=== PATIENT | female | born 1975 | race Two or more races ===

== ENCOUNTER 2017-06-20 22:13 | Emergency (ER) | payer OTHER ==
--- NOTE | 2017-06-20 23:10 | EKG REPORT ---
SEVERITY:- BORDERLINE ECG - SINUS TACHYCARDIA PROBABLE LEFT ATRIAL ABNORMALITY : Confirmed by: Abilio Rae 20-Jun-2017 23:10:01
[2017-06-20] MEDS ORDERED: MAG HYDROX/AL HYDROX/SIMETH SUSP 30 ML UDCUP PO ONE (23:22)
[2017-06-20] MEDS ORDERED: METOCLOPRAMIDE HCL ORAL SOLN 10 MG/10 ML UDCUP PO ONE (23:22)
[2017-06-20] MEDS ORDERED: LIDOCAINE 2% VISCOUS SOLN 20 ML UDCUP PO ONE (23:22)
[2017-06-20 23:50] LABS: ALBUMIN 3.4 g/dL (3.5-5.0); ANION GAP 13 (5-19); BILIRUBIN,DIRECT 0.4 mg/dL (0.0-0.4); BILIRUBIN,TOTAL 0.8 mg/dL (0.2-1.3); BLOOD UREA NITROGEN 10 mg/dL (7-20); CARBON DIOXIDE 21 mmol/L (22-30); CHLORIDE 98 mmol/L (98-107); GLUCOSE 322 mg/dL (75-110)
[2017-06-20 23:53] LABS: MEAN CORPUSCULAR VOLUME 87 fl (80-97); RED BLOOD COUNT 4.38 10^6/uL (3.72-5.28); RED CELL DISTRIBUTION WIDTH 12.6 % (11.5-14.0); WHITE BLOOD COUNT 11.4 10^3/uL (4.0-10.5)
[2017-06-20 23:57] LABS: ALANINE AMINOTRANSFERASE 33 U/L (9-52); CALCIUM 8.8 mg/dL (8.4-10.2)
[2017-06-20 23:58] LABS: ALKALINE PHOSPHATASE 127 U/L (38-126); ASPARTATE AMINO TRANSFERASE 14 U/L (14-36); POTASSIUM 4.1 mmol/L (3.6-5.0)
[2017-06-21 00:25] LABS: HEMOGLOBIN 12.8 g/dL (12.0-15.5); HGB HCT DIFFERENCE 0.4
[2017-06-21 00:26] LABS: MEAN CORPUSCULAR HEMOGLOBIN 29.1 pg (27.0-33.4); MEAN CORPUSCULAR HGB CONC 33.6 g/dL (32.0-36.0)
[2017-06-21 00:32] LABS: ABSOLUTE EOSINOPHILS# (MANUAL) 0.1 10^3/uL (0.0-0.6); BAND NEUTROPHILS % (MANUAL) 1 % (3-5); BASOPHILS % (MANUAL) 0 % (0-2); EOSINOPHILS % (MANUAL) 1 % (0-6); LYMPHOCYTES % (MANUAL) 15 % (13-45); TOTAL CELLS COUNTED 100
[2017-06-21 00:33] LABS: RBC MORPHOLOGY COMMENT NORMO-CYTIC/CHROMIC; TOXIC GRANULATION 1+; TOXIC VACUOLATION PRESENT
--- NOTE | 2017-06-21 01:10 | RADIOLOGY REPORT (SQ) ---
EXAM DESCRIPTION: CHEST PA/LAT CLINICAL HISTORY: Chest pain COMPARISON: None. FINDINGS: Frontal and lateral views of the chest. The cardiomediastinal silhouette has normal size and contour. No consolidation, pneumothorax, or pleural effusion. Leads overlie the chest. No displaced rib fractures identified. Prior cholecystectomy. IMPRESSION: 1. No acute pulmonary process identified.
[2017-06-21] MEDS ORDERED: NORMAL SALINE 1000 ML 1,000 ML IV ONE (01:22)
[2017-06-21 01:47] LABS: APPEARANCE,URINE CLEAR; BILIRUBIN,URINE NEGATIVE (NEGATIVE); GLUCOSE, URINE >=500 mg/dL (NEGATIVE); KETONES,URINE 80 mg/dL (NEGATIVE); LEUKOCYTE ESTERASE,URINE NEGATIVE (NEGATIVE); NITRITE,URINE NEGATIVE (NEGATIVE); PROTEIN,URINE 30 mg/dL (NEGATIVE); URINE SPECIFIC GRAVITY 1.037; UROBILINOGEN,URINE NEGATIVE mg/dL (<2.0)
[2017-06-21 01:52] LABS: VENOUS BLOOD BASE EXCESS -0.3 mmol/L; VENOUS BLOOD HCO3 24.3 mmol/L (20-32); VENOUS BLOOD PCO2 40.1 mmHg (35-63); VENOUS BLOOD PH 7.4 (7.30-7.42)
--- NOTE | 2017-06-21 02:21 | ER Document Report ---
ED General - General Chief Complaint: Chest Pain Stated Complaint: CHEST PAIN Time Seen by Provider: 06/20/17 23:04 Information source: Patient TRAVEL OUTSIDE OF THE [place] IN LAST 30 DAYS: No - HPI Patient complains to provider of: sharp pain under left breast Onset: This evening Onset/Duration: Sudden Quality of pain: Sharp Severity: Moderate Pain Level: 4 Associated symptoms: None Exacerbated by: Denies Relieved by: Denies Similar symptoms previously: No Recently seen / treated by doctor: No Notes: pain wraps around to midback b/l - Related Data Allergies/Adverse Reactions: No Known Allergies Allergy (Unverified 06/20/17 23:33) Past Medical History - General Information source: Patient - Social History Smoking Status: Never Smoker Cigarette use (# per day): No Chew tobacco use (# tins/day): No Smoking Education Provided: No Frequency of alcohol use: None Drug Abuse: None Lives with: Family Family History: Hypertension Patient has suicidal ideation: No Patient has homicidal ideation: No - Past Medical History Cardiac Medical History: Reports: Hx Hypercholesterolemia, Hx Hypertension Pulmonary Medical History: Reports: None EENT Medical History: Reports: None Neurological Medical History: Reports: None Endocrine Medical History: Reports: Hx Diabetes Mellitus Type 2 Other: sugars slightly higher than normal Renal/ Medical History: Denies: Hx Peritoneal Dialysis Malignancy Medical History: Reports: None GI Medical History: Reports: None Musculoskeltal Medical History: Reports None Skin Medical History: Reports None Psychiatric Medical History: Reports: None Past Surgical History: Reports: Hx Section - x3, Hx Cholecystectomy - Immunizations History of Influenza Vaccine for 04/2017 - 09/2017 Season: No Review of Systems - Review of Systems Constitutional: No symptoms reported EENT: No symptoms reported Cardiovascular: See HPI Respiratory: See HPI Gastrointestinal: See HPI Genitourinary: No symptoms reported Female Genitourinary: No symptoms reported Skin: No symptoms reported Hematologic/Lymphatic: No symptoms reported Neurological/Psychological: No symptoms reported Physical Exam - Vital signs Vitals: Temp Pulse Resp BP Pulse Ox 99.0 F 112 H 16 131/75 H 94 06/20/17 22:31 06/20/17 22:31 06/20/17 22:31 06/20/17 22:31 06/20/17 22:31 - Notes Notes: PHYSICAL EXAMINATION: GENERAL: Well-appearing, well-nourished and in mild distress due to sharp left upper quadrant pain. HEAD: Atraumatic, normocephalic. EYES: Pupils equal round and reactive to light, extraocular movements intact, conjunctiva are normal. ENT: Nares patent, oropharynx clear without exudates. Moist mucous membranes. NECK: Normal range of motion, supple without lymphadenopathy LUNGS: Breath sounds clear to auscultation bilaterally and equal. No wheezes rales or rhonchi. HEART: Regular rate and rhythm without murmurs ABDOMEN: Soft, nontender, nondistended abdomen. No guarding, no rebound. No masses appreciated. Left upper quadrant pain not reproducible palpation Female : deferred Musculoskeletal: Normal range of motion, no pitting or edema. No cyanosis. NEUROLOGICAL: Cranial nerves grossly intact. Normal speech, normal gait. Normal sensory, motor exams PSYCH: Normal mood, normal affect. SKIN: Warm, Dry, normal turgor, no rashes or lesions noted. Course - Re-evaluation Re-evalutation: Patient remained tachycardic throughout her hospital stay. I did give her 2 L of fluid without results. I added on a TSH and a d-dimer. TSH was within normal limits d-dimer was elevated. At that point I ordered a CAT scan to rule out a pulmonary embolus. It was negative however did show that the pancreas may have been inflamed. Therefore I had to add on a lipase. That came back within normal limits. Patient states that she feels better at this point. She will be discharged home. 06/21/17 06:10 I discussed with patient the results including labs chest x-ray CAT scan EKG and the need for follow-up. [place] in the next 1-2 days. She is to call her diabetic doctor because her sugars were high as well. Verbalized understanding. All questions were answered. She was discharged home in stable condition. 06/21/17 06:11 - Vital Signs Vital signs: Temp Pulse Resp BP Pulse Ox 98.8 F 112 H 18 126/83 H 95 06/21/17 02:28 06/20/17 22:31 06/21/17 05:00 06/21/17 05:00 06/21/17 05:00 - Laboratory Result Diagrams: 06/20/17 23:20 06/20/17 23:20 Laboratory results interpreted by me: 06/20/17 06/20/17 06/21/17 23:20 23:20 01:20 WBC 11.4 H Band Neutrophils % 1 L Abs Neuts (Manual) 9.0 H D-Dimer Sodium 132.0 L Carbon Dioxide 21 L Creatinine 0.40 L Glucose 322 H POC Glucose Alkaline Phosphatase 127 H Albumin 3.4 L Urine Protein 30 H Urine Glucose (UA) >=500 H Urine Ketones 80 H Urine Blood MODERATE H 06/21/17 06/21/17 02:49 04:35 WBC Band Neutrophils % Abs Neuts (Manual) D-Dimer 0.58 H Sodium Carbon Dioxide Creatinine Glucose POC Glucose 268 H Alkaline Phosphatase Albumin Urine Protein Urine Glucose (UA) Urine Ketones Urine Blood - Diagnostic Test Radiology reviewed: Image reviewed, Reports reviewed Radiology results interpreted by me: 06/21/17 04:30 Unremarkable. CTA demonstrated no PE, inflammation of the pancreas tail and radiologist suggested lipase as well as clinical correlation. There is also left lower lobe nodule. - EKG Interpretation by Me EKG shows normal: Sinus rhythm Rate: Tachycardia When compared to previous EKG there are: Previous EKG unavailable Discharge - Discharge Clinical Impression: Abdominal pain, Sinus tachycardia, Pulmonary nodule seen on imaging study, Uncontrolled diabetes mellitus Disposition: HOME, SELF-CARE Instructions: Abdominal Pain ([facility]), Sinus Tachycardia ([facility]), Diabetes ([facility]) Additional Instructions: [place] follow up in the next 1-2 days. Also call your diabetes doctor as we discussed as your sugar was high today.You had a small pulmonary nodule on your CAT scan of your chest. These follow-up in 1 year with your primary care provider for repeat CAT scan. Forms: Elevated Blood Pressure
--- NOTE | 2017-06-21 04:13 | RADIOLOGY REPORT (SQ) ---
EXAM DESCRIPTION: CTA of the chest per PE protocol with contrast. CLINICAL HISTORY: tachy/+ddimer/pain LUQ COMPARISON: None Available. TECHNIQUE: CTA of the chest obtained following the uncomplicated intravenous administration of 71 mL Isovue-370. 3-D/MIP reformatted images of the chest available for evaluation. FINDINGS: Chest: Mediastinal windows demonstrate an adequate contrast bolus. No pulmonary embolus identified. Visualized thyroid gland is unremarkable. Great vessels have normal anatomic configuration. No cardiomegaly, coronary artery atherosclerosis, or pericardial effusion. No abnormalities of the esophagus. Scattered mediastinal lymph nodes are not enlarged by CT criteria. Lung windows demonstrate no consolidation, pneumothorax, or pleural effusion. There is a 0.3 cm solid indeterminate pulmonary nodule in the left lower lobe best seen on image #55, series 4. No abnormalities of the visualized trachea or airways. Limited images of the upper abdomen demonstrate no abnormal the visualized spleen, liver, adrenal glands, or kidneys. Cholecystectomy. Inflammatory changes adjacent to the tail of the pancreas. No destructive osseous lesions. DLP: 563.32 mGycm IMPRESSION: 1. No pulmonary embolus noted. 2. There is a 0.3 cm solid pulmonary nodule in the left lower lobe. If this is a low risk patient no follow-up required. If the patient is at high risk for pulmonary neoplasm follow-up CT of the chest in 12 months would be recommended. 3. Inflammatory changes adjacent to the tail of the pancreas. Correlation with serum lipase recommended to evaluate for pancreatitis. This exam was performed according to our departmental dose-optimization program, which includes automated exposure control, adjustment of the mA and/or kV according to patient size and/or use of iterative reconstruction technique.
[2017-06-21] MEDS ORDERED: MORPHINE SULFATE 10 MG/ML INJ IV ONE (04:32)
[2017-06-21] MEDS ORDERED: ONDANSETRON HCL INJ/PF 4 MG/2 ML SDV IV ONE (04:49)
[2017-06-21 06:21] VITALS: BP 106/70
== END 2017-06-21 06:21 | disposition home or self-care (01) ==
LOC: ER 22:13
DX: R10.12 Left upper quadrant pain (principal); R91.1 Solitary pulmonary nodule; E11.9 Type 2 diabetes mellitus without complications; R07.9 Chest pain, unspecified; I10 Essential (primary) hypertension; R00.0 Tachycardia, unspecified; E11.65 Type 2 diabetes mellitus with hyperglycemia; Z90.49 Acquired absence of other specified parts of digestive tract
CPT/HCPCS: 93005; 99285; 96361; 96374; 96375; 36415; 82962; 83690; 84443; 85025; 81025; 80053; 81001; 84484; 85379; 82803; 87804; 71020; 71275; 93010; J3490; J2270; J2405; J7030

== ENCOUNTER 2018-12-13 12:32 | Emergency (ER) | payer OTHER ==
--- NOTE | 2018-12-13 12:54 | ER Document Report ---
ED Medical Screen (RME) - General Chief Complaint: Flank Pain Stated Complaint: BLOOD IN URINE,LOW BACK PAIN Time Seen by Provider: 12/13/18 12:46 TRAVEL OUTSIDE OF THE [place] IN LAST 30 DAYS: No - HPI Notes: 12/13/18 12:52 Patient is a 43-year-old female with a history of diabetes and pancreatitis who presents complaining of multiple issues. Patient states that she is having epigastric/chest tightness that developed over the past 2 days and does not radiate. Patient is also complaining of lower suprapubic pain, left flank pain that does not radiate and is constant, burning with urination, and hematuria. Patient has never had a kidney stone and believes that this is a urinary infection. She does have associated diarrhea without any nausea or vomiting. Denies any prolonged immobilization, distance travel, recent surgery/trauma, personal cancer history, hormone use, or previous DVT/PE. Denies SU, fever, neck pain, URI, SOB, or rash. I have treated and performed a rapid initial assessment of this patient. A comprehensive ED assessment and evaluation of the patient, analysis of test results and completion of medical decision making process will be conducted by additional ED providers. PHYSICAL EXAMINATION: GENERAL: Well-appearing, well-nourished and in no acute distress. A&Ox4. Answers questions appropriately. LUNGS: Breath sounds clear to auscultation bilaterally and equal. No wheezes rales or rhonchi. HEART: Regular rate and rhythm without murmurs, rubs, gallops. ABDOMEN: Soft, nondistended abdomen. No guarding, no rebound. Normal bowel sounds present. + left CVA tenderness bilaterally. + Suprapubic and epigastric tenderness (cannot elicit thorough abd exam w/o bed, however). - Related Data Allergies/Adverse Reactions: No Known Allergies Allergy (Verified 12/13/18 12:34) Past Medical History - Past Medical History Cardiac Medical History: Reports: Hx Hypercholesterolemia, Hx Hypertension Endocrine Medical History: Reports: Hx Diabetes Mellitus Type 2 Renal/ Medical History: Denies: Hx Peritoneal Dialysis Past Surgical History: Reports: Hx Section - x3, Hx Cholecystectomy - Immunizations History of Influenza Vaccine for 04/2017 - 09/2017 Season: No Physical Exam - Vital signs Vitals: Temp Pulse Resp BP Pulse Ox 98.6 F 119 H 18 149/87 H 96 12/13/18 12:42 12/13/18 12:42 12/13/18 12:42 12/13/18 12:42 12/13/18 12:42 Course - Vital Signs Vital signs: Temp Pulse Resp BP Pulse Ox 98.6 F 119 H 18 149/87 H 96 12/13/18 12:42 12/13/18 12:42 12/13/18 12:42 12/13/18 12:42 12/13/18 12:42
[2018-12-13] MEDS ORDERED: NORMAL SALINE 1000 ML 1,000 ML IV ONE ×2 (12:55→18:55)
[2018-12-13] MEDS ORDERED: KETOROLAC TROMETHAMINE INJ/PF 30 MG/1 ML SDV IV ONE (12:55)
--- NOTE | 2018-12-13 13:56 | RADIOLOGY REPORT (SQ) ---
EXAM DESCRIPTION: CHEST SINGLE VIEW COMPLETED DATE/TIME: 12/13/2018 1:46 pm REASON FOR STUDY: CP COMPARISON: 06/21/2017 EXAM PARAMETERS: NUMBER OF VIEWS: One view. TECHNIQUE: Single frontal radiographic view of the chest acquired. RADIATION DOSE: NA LIMITATIONS: None. FINDINGS: LUNGS AND PLEURA: No opacities, masses or pneumothorax. No pleural effusion. MEDIASTINUM AND HILAR STRUCTURES: No masses. Contour normal. HEART AND VASCULAR STRUCTURES: Heart normal in size. Normal vasculature. BONES: No acute findings. HARDWARE: None in the chest. OTHER: No other significant finding. IMPRESSION: No acute abnormality of the lungs in frontal projection. TECHNICAL DOCUMENTATION: JOB ID: [id number]- All Rights Reserved Reading location - IP/workstation name: [email or web address]
[2018-12-13 14:06] LABS: ABSOLUTE LYMPHOCYTES (AUTO) 1.1 10^3/uL (0.5-4.7); ABSOLUTE MONOCYTES (AUTO) 0.5 10^3/uL (0.1-1.4); ABSOLUTE NEUT (AUTO) 4.7 10^3/uL (1.7-8.2); BASOPHILS % (AUTO) 0.6 % (0-2); EOSINOPHILS % (AUTO) 0.7 % (0-6); HEMATOCRIT 41.3 % (36.0-47.0); HEMOGLOBIN 14.3 g/dL (12.0-15.5); LYMPHOCYTES % (AUTO) 17.5 % (13-45); MEAN CORPUSCULAR HEMOGLOBIN 30.2 pg (27.0-33.4); MEAN CORPUSCULAR HGB CONC 34.6 g/dL (32.0-36.0); MEAN CORPUSCULAR VOLUME 87 fl (80-97); MONOCYTES % (AUTO) 8.1 % (3-13); PLATELET COUNT 250 10^3/uL (150-450); RED BLOOD COUNT 4.73 10^6/uL (3.72-5.28); RED CELL DISTRIBUTION WIDTH 12.5 % (11.5-14.0); SEGMENTED NEUTROPHILS % (AUTO) 73.1 % (42-78); TOTAL CELLS COUNTED % (AUTO) 100 %; WHITE BLOOD COUNT 6.5 10^3/uL (4.0-10.5)
[2018-12-13 14:08] LABS: APPEARANCE,URINE CLOUDY; BILIRUBIN,URINE NEGATIVE (NEGATIVE); COLOR,URINE STRAW; GLUCOSE, URINE >=500 mg/dL (NEGATIVE); KETONES,URINE NEGATIVE (NEGATIVE); LEUKOCYTE ESTERASE,URINE MODERATE (NEGATIVE); NITRITE,URINE NEGATIVE (NEGATIVE); PROTEIN,URINE NEGATIVE (NEGATIVE); URINE SPECIFIC GRAVITY 1.027; UROBILINOGEN,URINE NEGATIVE mg/dL (<2.0)
[2018-12-13 14:22] LABS: ALANINE AMINOTRANSFERASE 18 U/L (9-52); ALKALINE PHOSPHATASE 124 U/L (38-126); ANION GAP 13 (5-19); ASPARTATE AMINO TRANSFERASE 13 U/L (14-36); BILIRUBIN,DIRECT 0.3 mg/dL (0.0-0.4); BILIRUBIN,TOTAL 0.6 mg/dL (0.2-1.3); BLOOD UREA NITROGEN 10 mg/dL (7-20); CALCIUM 9.6 mg/dL (8.4-10.2); CARBON DIOXIDE 25 mmol/L (22-30); CHLORIDE 97 mmol/L (98-107); LIPASE 31.7 U/L (23-300); POTASSIUM 4.6 mmol/L (3.6-5.0); SODIUM 134.5 mmol/L (137-145); TOTAL PROTEIN 7.3 g/dL (6.3-8.2)
[2018-12-13 14:36] LABS: GLUCOSE 403 mg/dL (75-110)
[2018-12-13] MEDS ORDERED: CEPHALEXIN 500 MG CAPSULE PO ONE ×2 (17:51→22:00)
[2018-12-13] MEDS ORDERED: PHENAZOPYRIDINE HCL 200 MG TABLET PO ONE ×2 (17:56→22:00)
[2018-12-13] MEDS ORDERED: INSULIN REG, HUMAN 100 UNIT/ML 3 ML VIAL (PYX) IV ONE ×2 (17:57→22:00)
--- NOTE | 2018-12-13 18:28 | ER Document Report ---
ED General - General Chief Complaint: Flank Pain Stated Complaint: BLOOD IN URINE,LOW BACK PAIN Time Seen by Provider: 12/13/18 12:46 TRAVEL OUTSIDE OF THE [place] IN LAST 30 DAYS: No - HPI Notes: Patient is a 43-year-old female who presents to the emergency department for evaluation of multiple issues. First she complains of urinary frequency has been going on for about 3 weeks. She states that she is developed more significant dysuria over the last 48 hours, but admits is been present for about a week as well. She denies any fevers or chills. She has had some intermittent nausea but has had no monae emesis. No gross hematuria. Normal bowel movements. The patient also states over the last 2 days she has had a tightness in her epigastric region, similar to when she had pancreatitis in the past. On occasion this does make her short of breath. She admits she is currently under a lot of stress. She just got new insurance, is establishing with a new primary care physician. She states her blood sugars have been very high as of late. - Related Data Allergies/Adverse Reactions: No Known Allergies Allergy (Verified 12/13/18 12:34) Past Medical History - Social History Smoking Status: Never Smoker Family History: Hypertension Patient has suicidal ideation: No Patient has homicidal ideation: No - Past Medical History Cardiac Medical History: Reports: Hx Hypercholesterolemia, Hx Hypertension Endocrine Medical History: Reports: Hx Diabetes Mellitus Type 2 Renal/ Medical History: Denies: Hx Peritoneal Dialysis Past Surgical History: Reports: Hx Section - x3, Hx Cholecystectomy Review of Systems - Review of Systems Constitutional: No symptoms reported EENT: No symptoms reported Cardiovascular: No symptoms reported Respiratory: No symptoms reported Gastrointestinal: See HPI Genitourinary: See HPI Female Genitourinary: No symptoms reported Musculoskeletal: No symptoms reported Skin: No symptoms reported Neurological/Psychological: No symptoms reported Physical Exam - Vital signs Vitals: Temp Pulse Resp BP Pulse Ox 98.6 F 119 H 18 149/87 H 96 12/13/18 12:42 12/13/18 12:42 12/13/18 12:42 12/13/18 12:42 12/13/18 12:42 - Notes Notes: Vital signs reviewed, please refer to chart. Head is normocephalic, atraumatic. Pupils equal round, reactive to light. Neck is supple without meningismus. Heart is regular rate and rhythm. Lungs are clear to auscultation bilaterally. Abdomen is soft, nontender, normoactive bowel sounds throughout. No CVA tenderness. Extremities without cyanosis, clubbing. Posterior calves are nontender. Peripheral pulses are equal. Skin is warm and dry. Patient is awake, alert, neurological exam is nonfocal. Course - Re-evaluation Re-evalutation: 12/13/18 18:25 Patient presents emergency department for evaluation. Laboratory investigations and imaging is ordered. Laboratory investigations did not fact reveal UTI. She does have significant hyperglycemia as well. She was given IV fluids. She was given insulin. She was given Keflex as well as Pyridium. The importance of reporting for evaluation of dysuria and a diabetic was stressed to the patient. I also told her she needs to be sure to establish again with primary care, cont inue to treat her blood sugars. She voiced understanding to this. We discussed dietary options. Otherwise she is sent home with a prescription of Pyridium as well as Keflex, she is to return to the ED with worsening or new concerning symptoms of any sort. 12/13/18 18:56 Patient still mildly tachycardic with a heart rate of 101. Decision made to give further IV fluids, obtain blood cultures before administration of the Keflex. We will continue to follow. - Vital Signs Vital signs: Temp Pulse Resp BP Pulse Ox 98.6 F 119 H 18 149/87 H 96 12/13/18 12:42 12/13/18 12:42 12/13/18 12:42 12/13/18 12:42 12/13/18 12:42 - Laboratory Result Diagrams: 12/13/18 13:54 12/13/18 13:54 Laboratory results interpreted by me: 12/13/18 12/13/18 13:54 13:54 Sodium 134.5 L Chloride 97 L Creatinine 0.36 L Glucose 403 H* AST 13 L Urine Glucose (UA) >=500 H Urine Blood MODERATE H Ur Leukocyte Esterase MODERATE H - Diagnostic Test Radiology reviewed: Reports reviewed Radiology results interpreted by me: 12/13/18 18:25 Chest X-Ray 12/13/18 12:54 IMPRESSION: No acute abnormality of the lungs in frontal projection. - EKG Interpretation by Me Additional EKG results interpreted by me: 12/13/18 18:56 Sinus tachycardia with a rate of 103 bpm. Normal axis and intervals, no acute ST changes concerning for ischemia or infarction. Previous EKG reveals no significant change, she was actually tachycardic at that time as well. 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 Take the Pyridium as needed for pain. You need to establish care with a primary care physician, discuss better glucose control. If you develop fevers, vomiting, or worsening symptoms of any sort, return immediately to the emergency department for reevaluation.
--- NOTE | 2018-12-13 20:15 | EKG REPORT ---
SEVERITY:- OTHERWISE NORMAL ECG - SINUS TACHYCARDIA : Confirmed by: Patrick Israel MD 13-Dec-2018 20:15:11
[2018-12-13] MEDS ORDERED: PHENAZOPYRIDINE HCL 200 MG TABLET ONE (22:10)
[2018-12-13 22:32] VITALS: BP 145/78
== END 2018-12-13 22:31 | disposition home or self-care (01) ==
LOC: ER 12:32
DX: N30.00 Acute cystitis without hematuria (principal); R10.13 Epigastric pain; E11.65 Type 2 diabetes mellitus with hyperglycemia; R31.9 Hematuria, unspecified; M54.5 Low back pain
CPT/HCPCS: 93005; 99284; 96360; 36415; 87040; 87086; 82962; 83690; 85025; 87088; 80053; 81001; 84484; 87186; 71045; 93010; J1885; J3490; J1815; J7030

== ENCOUNTER 2018-12-25 12:56 | Emergency (ER) | payer OTHER ==
[2018-12-25] MEDS ORDERED: ONDANSETRON HCL INJ/PF 4 MG/2 ML SDV IV ONE ×2 (13:24→17:58)
[2018-12-25] MEDS ORDERED: CEFTRIAXONE 1 GM/D5W RTU 1 GM/50 ML RTUPB IV ONE (13:24)
[2018-12-25] MEDS ORDERED: NORMAL SALINE 1000 ML 1,000 ML IV ONE ×3 (13:25→18:40)
--- NOTE | 2018-12-25 13:26 | ER Document Report ---
ED Medical Screen (RME) - General Chief Complaint: Urinary Problem Stated Complaint: URINARY PROBLEMS Time Seen by Provider: 12/25/18 13:18 Mode of Arrival: Ambulatory Information source: Patient Notes: Patient is an otherwise healthy 43-year-old female recently seen and treated for urinary tract infection with Keflex. Urine culture grew out E. coli. Patient reports worsening pain across her low back, persistent vomiting and fever. Patient reports taking antibiotics as prescribed. Exam: Tenderness to palpation across lumbar paraspinous areas. Mild CVA tenderness especially to the right side. I have greeted and performed a rapid initial assessment of this patient. A comprehensive ED assessment and evaluation of the patient, analysis of test results and completion of the medical decision making process will be conducted by additional ED providers. I have specifically instructed the patient or family members with the patient to immediately return to any nursing staff should anything change in the patient's condition or with their chief complaint. This medical record was dictated with voice recognizing software. There may be grammatical, syntax errors that are unintended. TRAVEL OUTSIDE OF THE [place] IN LAST 30 DAYS: No - Related Data Allergies/Adverse Reactions: No Known Allergies Allergy (Verified 12/25/18 12:56) Past Medical History - Social History Frequency of alcohol use: None Drug Abuse: None - Past Medical History Cardiac Medical History: Reports: Hx Hypercholesterolemia, Hx Hypertension Endocrine Medical History: Reports: Hx Diabetes Mellitus Type 2 Renal/ Medical History: Denies: Hx Peritoneal Dialysis Past Surgical History: Reports: Hx Section - x3, Hx Cholecystectomy - Immunizations History of Influenza Vaccine for 04/2017 - 09/2017 Season: No Physical Exam - Vital signs Vitals: Temp Pulse Resp BP Pulse Ox 99.2 F 116 H 18 131/79 H 96 12/25/18 13:12 12/25/18 13:12 12/25/18 13:12 12/25/18 13:12 12/25/18 13:12 Course - Vital Signs Vital signs: Temp Pulse Resp BP Pulse Ox 99.2 F 116 H 18 131/79 H 96 12/25/18 13:12 12/25/18 13:12 12/25/18 13:12 12/25/18 13:12 12/25/18 13:12
[2018-12-25 14:27] LABS: APPEARANCE,URINE CLEAR; BILIRUBIN,URINE NEGATIVE (NEGATIVE); COLOR,URINE YELLOW; GLUCOSE, URINE >=500 mg/dL (NEGATIVE); KETONES,URINE 20 mg/dL (NEGATIVE); LEUKOCYTE ESTERASE,URINE NEGATIVE (NEGATIVE); NITRITE,URINE NEGATIVE (NEGATIVE); PROTEIN,URINE NEGATIVE (NEGATIVE); URINE SPECIFIC GRAVITY 1.024; UROBILINOGEN,URINE NEGATIVE mg/dL (<2.0)
[2018-12-25 14:46] LABS: ABSOLUTE LYMPHOCYTES (AUTO) 0.6 10^3/uL (0.5-4.7); ABSOLUTE MONOCYTES (AUTO) 0.3 10^3/uL (0.1-1.4); ABSOLUTE NEUT (AUTO) 5.4 10^3/uL (1.7-8.2); BASOPHILS % (AUTO) 0.3 % (0-2); EOSINOPHILS % (AUTO) 0.3 % (0-6); HEMATOCRIT 39.2 % (36.0-47.0); HEMOGLOBIN 13.7 g/dL (12.0-15.5); MEAN CORPUSCULAR HEMOGLOBIN 30.1 pg (27.0-33.4); MEAN CORPUSCULAR HGB CONC 34.8 g/dL (32.0-36.0); MEAN CORPUSCULAR VOLUME 86 fl (80-97); MONOCYTES % (AUTO) 4.2 % (3-13); PLATELET COUNT 269 10^3/uL (150-450); RED BLOOD COUNT 4.54 10^6/uL (3.72-5.28); RED CELL DISTRIBUTION WIDTH 12.1 % (11.5-14.0); SEGMENTED NEUTROPHILS % (AUTO) 85.2 % (42-78); TOTAL CELLS COUNTED % (AUTO) 100 %; WHITE BLOOD COUNT 6.3 10^3/uL (4.0-10.5)
[2018-12-25 14:52] LABS: ALANINE AMINOTRANSFERASE 25 U/L (9-52); ALBUMIN 3.8 g/dL (3.5-5.0); ALKALINE PHOSPHATASE 126 U/L (38-126); ANION GAP 7 (5-19); ASPARTATE AMINO TRANSFERASE 15 U/L (14-36); BILIRUBIN,DIRECT 0.3 mg/dL (0.0-0.4); BILIRUBIN,TOTAL 0.7 mg/dL (0.2-1.3); BLOOD UREA NITROGEN 8 mg/dL (7-20); CALCIUM 9.3 mg/dL (8.4-10.2); CARBON DIOXIDE 28 mmol/L (22-30); CHLORIDE 99 mmol/L (98-107); GLUCOSE 263 mg/dL (75-110); POTASSIUM 4.1 mmol/L (3.6-5.0); SODIUM 134.4 mmol/L (137-145)
[2018-12-25] MEDS ORDERED: DEXAMETHASONE SOD PHOS INJ 10 MG/1 ML VIAL IV ONE (15:50)
[2018-12-25] MEDS ORDERED: AZITHROMYCIN 250 MG TABLET PO ONE (15:51)
[2018-12-25] MEDS ORDERED: KETOROLAC TROMETHAMINE INJ/PF 30 MG/1 ML SDV IV ONE (15:54)
--- NOTE | 2018-12-25 15:57 | ER Document Report ---
ED GI/ - General Chief Complaint: Urinary Problem Stated Complaint: URINARY PROBLEMS Time Seen by Provider: 12/25/18 13:18 Mode of Arrival: Ambulatory Notes: 43-year-old female recently seen and treated for urinary tract infection with Keflex. Urine culture grew out E. coli. Patient reports worsening pain across her low back, persistent vomiting and fever. Patient reports taking antibiotics as prescribed. Complains of pain in both flanks. Denies vaginal discharge denies abdominal pain. States she has subjective fevers at night but has not measured. Some occasional nausea but no vomiting no diarrhea. TRAVEL OUTSIDE OF THE [place] IN LAST 30 DAYS: No - Related Data Allergies/Adverse Reactions: No Known Allergies Allergy (Verified 12/25/18 12:56) Past Medical History - General Information source: Patient - Social History Smoking Status: Never Smoker Frequency of alcohol use: None Drug Abuse: None Family History: Hypertension Patient has suicidal ideation: No Patient has homicidal ideation: No - Past Medical History Cardiac Medical History: Reports: Hx Hypercholesterolemia, Hx Hypertension Endocrine Medical History: Reports: Hx Diabetes Mellitus Type 2 Renal/ Medical History: Denies: Hx Peritoneal Dialysis Past Surgical History: Reports: Hx Section - x3, Hx Cholecystectomy Review of Systems - Review of Systems Constitutional: Chills, Fever Cardiovascular: denies: Chest pain Respiratory: denies: Cough, Short of breath Gastrointestinal: Nausea. denies: Abdominal pain, Vomiting Musculoskeletal: Back pain Neurological/Psychological: Headaches -: Yes All other systems reviewed and negative Physical Exam - Vital signs Vitals: Temp Pulse Resp BP Pulse Ox 99.2 F 116 H 18 131/79 H 96 12/25/18 13:12 12/25/18 13:12 12/25/18 13:12 12/25/18 13:12 12/25/18 13:12 - Notes Notes: GENERAL_APPEARANCE: well_nourished, alert, cooperative, no_acute_distress, no_obvious_discomfort. VITALS: reviewed, see vital signs table. HEAD: no_swelling\tenderness on the head. EYES: PERRL, EOMI, conjunctiva_clear. NOSE: no_nasal_discharge. MOUTH: (-)decreased moisture. THROAT: no_tonsilar_inflammation, no_airway_obstruction. no_lymphadenopathy NECK: supple, no_neck_tenderness, (-)thyromegaly. BACK: biateral CVA_back_tenderness. CHEST_WALL: no_chest_tenderness. LUNGS: no_wheezing, no_rales, no_rhonchi, (-)accessory muscle use, good air exchange bilateral. HEART: normal_rate, normal_rhythm, normal_S1, normal_S2, (-)S3, (-)S4, no_murmur, no_rub. ABDOMEN: normal_BS, soft, no_abd_tenderness, (-)guarding, (-)rebound, no_organ omegaly, no_abd_masses. EXTREMITIES: good pulses in all_extremities, no_swelling\tenderness in the extremities, no_edema. SKIN: warm, dry, good_color, no_rash. MENTAL_STATUS: speech_clear, oriented_X_3, normal_affect, responds_appropriately to questions. NEURO: Neg Motor or Sensory Deficits on exam, CN 2-12 intact, DTR 2+ symmetric x 4, No cerbellar signs Course - Re-evaluation Re-evalutation: 12/25/18 15:56 43-year-old female presents with continued urinary symptoms of just subjective fever and chills. The patient was given a dose of Rocephin here Zithromax. The patient is finishing up her Keflex. We will place her on another course of antibiotics and Pyridium. Gave her some Toradol here. Patient otherwise doing well will be discharged home. She is improved with fluids and medications. She is not vomiting she should do well outpatient. She has no leukocytosis. Culture is sensitive for Macrobid. We will start her not also. - Vital Signs Vital signs: Temp Pulse Resp BP Pulse Ox 99.2 F 116 H 18 131/79 H 96 12/25/18 13:12 12/25/18 13:12 12/25/18 13:12 12/25/18 13:12 12/25/18 13:12 - Laboratory Result Diagrams: 12/25/18 14:21 12/25/18 14:21 Laboratory results interpreted by me: 12/25/18 12/25/18 12/25/18 13:31 14:21 14:21 Seg Neutrophils % 85.2 H Lymphocytes % 10.0 L Sodium 134.4 L Creatinine 0.43 L Glucose 263 H Urine Glucose (UA) >=500 H Urine Ketones 20 H Urine Blood MODERATE H Discharge - Discharge Clinical Impression: Pyelonephritis Condition: Good Disposition: HOME, SELF-CARE Instructions: Pyelonephritis ([facility]) Prescriptions: Nitrofurantoin/Nitrofuran Mac [Macrobid 100 mg Capsule] 1 tab PO BID #20 capsule Phenazopyridine HCl [Pyridium 200 mg Tablet] 200 mg PO TID #15 tablet
[2018-12-25] MEDS ORDERED: ACETAMINOPHEN 325 MG TABLET PO ONE (18:54)
[2018-12-25 20:40] VITALS: BP 111/66
== END 2018-12-25 20:42 | disposition home or self-care (01) ==
LOC: ER 12:56
DX: N12 Tubulo-interstitial nephritis, not specified as acute or chronic (principal); M54.5 Low back pain; R11.10 Vomiting, unspecified; R50.9 Fever, unspecified; E78.00 Pure hypercholesterolemia, unspecified; I10 Essential (primary) hypertension; E11.9 Type 2 diabetes mellitus without complications; Z90.49 Acquired absence of other specified parts of digestive tract
CPT/HCPCS: 96376; 96361; 99284; 96375; 96365; 96366; 36415; 87086; 84703; 85025; 87088; 80053; 81001; 87186; J1885; J2405; J7030; J0696